=== PATIENT | male | born 1995 | race Caucasian/White ===

== ENCOUNTER 2023-08-02 23:35 | Emergency (ER) | payer BC ==
[2023-08-03] MEDS ORDERED: Acetaminophen 500 MG TAB ONE (00:49)
[2023-08-03] MEDS ORDERED: Penicillin V Potassium 250 MG TAB PO SCH (02:00)
== END 2023-08-03 02:09 | disposition home or self-care (01) ==
LOC: ERS 23:35
DX: K02.9 Dental caries, unspecified (principal); F17.290 Nicotine dependence, other tobacco product, uncomplicated
CPT/HCPCS: 99282